=== PATIENT | male | born 2000 | race Two or more races ===

== ENCOUNTER 2020-05-23 20:09 | Emergency (ER) | payer OTHER ==
--- NOTE | 2020-05-23 20:13 | PDOC ---
Rapid Medical Evaluation Chief Complaint: Injury Time Seen by Provider: 05/23/20 20:10 Medical Evaluation: Allergies Allergy/AdvReac Type Severity Reaction Status Date / Time No Known Allergies Allergy Verified 02/11/20 14:39 05/23/20 20:11 20 year old male c/o right hand pain a week ago. patient sent by PCP for an xray Last Vital Signs Temp Pulse Resp BP Pulse Ox 98.3 F 60 20 113/61 100 05/23/20 20:10 05/23/20 20:10 05/23/20 20:10 05/23/20 20:10 05/23/20 20:10 Pe: patient is able to make a fist. no swelling or deformity A; right hand pain P; right hand xray 05/23/20 20:30 Discharge Disposition - Diagnosis Right hand pain - Referrals - Patient Instructions - Post Discharge Activity
[2020-05-23 20:14] VITALS: BP 113/61; PULSE 60; TEMP 98.3; BMI 19.6
--- NOTE | 2020-05-23 20:37 | PDOC ---
History of Present Illness - General Chief Complaint: Pain Stated Complaint: RT HAND PAIN Time Seen by Provider: 05/23/20 20:10 - History of Present Illness Initial Comments: 05/23/20 20:35 20-year-old male without comorbidities presents for evaluation of right hand pain x1 week after playing basketball no specific trauma Past History - Medical History Allergies/Adverse Reactions: Allergies Allergy/AdvReac Type Severity Reaction Status Date / Time No Known Allergies Allergy Verified 02/11/20 14:39 COPD: No - Psycho-Social/Smoking History Smoking History: Never smoked - Substance Abuse Hx (Audit-C & DAST Scrn) How often the patient has a drink containing alcohol: Never Score: In Men: 4 or > Positive; In Women: 3 or > Positive: 0 Screen Result (Pos requires Nsg. Audit-10AR): Negative Review of Systems - Review of Systems Musculoskeletal: Yes: See HPI *Physical Exam - Vital Signs Last Vital Signs Temp Pulse Resp BP Pulse Ox 98.3 F 60 20 113/61 100 05/23/20 20:10 05/23/20 20:10 05/23/20 20:10 05/23/20 20:10 05/23/20 20:10 - Physical Exam 05/23/20 20:36 Right hand skin color and temperature normal full range of motion all fingers MCP J's FDS and FDP work independently in all fingers no gross sensorimotor deficits minimal tenderness at the area of the fifth metacarpal otherwise neurovascular intact without any other areas of tenderness. Full range of motion of the forearm wrist and elbow Medical Decision Making - Medical Decision Making 05/23/20 20:36 X-rays of the right hand show no evidence of fracture trauma or destructive process benign examination follow-up with hand surgery should he have other problems. I have reviewed the pathophysiology with the patient. They are in agreement with the treatment plan all questions were answered to their satisfaction. Understanding for follow-up without fail was also conveyed to the patient. Again they are in agreement. Discharge - Discharge Information Problems reviewed: Yes Clinical Impression/Diagnosis: Right hand pain Condition: Stable Disposition: HOME - Admission No - Follow up/Referral Referrals: Marlen Jose MD [Primary Care Provider] - Adam Phillips DO [Staff Physician] - - Patient Discharge Instructions Additional Instructions: Tylenol Motrin for pain and follow-up with orthopedic surgery in 1 to 2 days for further evaluation and treatment options. Return to the emergency room should you have further issues. - Post Discharge Activity
== END 2020-05-23 20:39 | disposition home or self-care (01) ==
LOC: JERFT 20:09 → JER 20:09 → JERFT 20:39
DX: M79.641 Pain in right hand (principal)
CPT/HCPCS: 73130-TC-RT-FY; 99283-25

== ENCOUNTER 2020-08-01 21:21 | Emergency (ER) | payer OTHER ==
[2020-08-01 21:27] VITALS: BP 129/62; PULSE 58; TEMP 97.8; BMI 19.9
--- NOTE | 2020-08-01 21:31 | PDOC ---
Rapid Medical Evaluation Chief Complaint: Pain Medical Evaluation: Allergies Allergy/AdvReac Type Severity Reaction Status Date / Time No Known Allergies Allergy Verified 02/11/20 14:39 Vital Signs Temp Pulse Resp BP Pulse Ox 97.8 F 58 L 20 129/62 100 08/01/20 21:22 08/01/20 21:22 08/01/20 21:22 08/01/20 21:22 08/01/20 21:22 08/01/20 21:30 20 year old male with testicular pain radiating to lower abdomen, intermittent. PE differed Plan Scrotal US Pt to precede to Ed for further eval
--- OUTSIDE RECORDS SUMMARY | 2020-08-01 21:35 | XMS ---
:2000 Author Organization [facility] Support Name Relationship Address Phone CATHIE Unavailable Unavailable Unavailable CATHIE Unavailable Unavailable Unavailable AYALA FATHER [address] [place] [address] AYALA Parent [address] Unavailable [place] [address] AYALA Unavailable [address] [place] [address] Re-disclosure Warning The records that you are about to access may contain information from federally- assisted alcohol or drug abuse programs. If such information is present, then the following federally mandated warning applies: This information has been disclosed to you from records protected by federal confidentiality rules (42 CFR part 2). The federal rules prohibit you from making any further disclosure of this information unless further disclosure is expressly permitted by the written consent of the person to whom it pertains or as otherwise permitted by 42 CFR part 2. A general authorization for the release of medical or other information is NOT sufficient for this purpose. The Federal rules restrict any use of the information to criminally investigate or prosecute any alcohol or drug abuse patient.The records that you are about to access may contain highly sensitive health information, the redisclosure of which is protected by Article 27-F of the [facility] Public Health law. If you continue you may haveaccess to information: Regarding HIV / AIDS; Provided by facilities licensed or operated by the [facility] Office of Mental Health; or Provided by the [facility] Office for People With Developmental Disabilities. If such information is present, then the following [facility] mandated warning applies: This information has been disclosed to you from confidential records which are protected by state law. State law prohibits you from making any further disclosure of this information without the specific written consent of the person to whom it pertains, or as otherwise permitted by law. Any unauthorized further disclosure in violation of state law may result in a fine or long term sentence or both. A general authorization for the release of medical or other information is NOT sufficient authorization for further disclosure. Encounters Encounter Providers Location Date Indications Data Source(s ) Outpatient [address] 05/16/2020 eCW1 ([facility] 12:[facility]:00 AM [facility] Outpatient [address] 03/28/2020 eCW1 ([facility] 12[facility]00 [facility] [address] 03/01/2020 eCW1 [facility] [address] 02/17/2020 eCW1 [facility] [address] 10/21/2019 eCW1 [facility] [address] 10/05/2019 eCW1 [facility]00 [facility] Immunizations Vaccine Date Status Description Data Source(s) B12 05/16/2020 02:21:00 PM completed eCW1 ([facility]) B12 03/28/2020 02:52:00 PM completed eCW1 ([facility]) B12 03/01/2020 12:33:00 PM completed eCW1 ([facility]) B12 03/01/2020 12:33:00 PM completed eCW1 ([facility]) B12 02/17/2020 12:09:00 PM completed eCW1 ([facility]) B12 02/17/2020 12:09:00 PM completed eCW1 ([facility]) B12 10/21/2019 10:23:00 AM completed eCW1 ([facility]) B12 10/21/2019 10:23:00 AM completed eCW1 ([facility]) Medications Medication Brand Start Product Dose Route Administrative Pharmacy [facility] Indications Reaction Description Data Name Date Form Instructions Instructions Source(s) Vitamin B Vitami 01/02/ active 1 tablet eCW1 12 0.1 MG n B-12 2020 ([facility] Tablet 100 12:00: Cm s Vitamin MCG 00 AM Medical B-12 100 EST Practice [facility]) Vitamin D UNK 10/21/ active 1 capsule e CW1 (Ergocalcif 2020 ([facility]) 12:00: Cm s UNIT 00 AM Medical EST Practice PC) Vitamin D UNK 10/21/ 1.0 active Vitamin D e CW1 (Ergocalcif 2020 {caps (Ergocalcife ([facility]) 12:00: ule} rol) [id number] Jo[facility] UNIT 00 AM UNIT Medical EST Practice PC) Vitamin D UNK 10/21/ 1.0 active Vitamin D e CW1 (Ergocalcif 2020 {caps (Ergocalcife ([facility]) 12:00: ule} rol) [id number] [facility] UNIT 00 AM UNIT Medical EST Practice PC) Vitamin B Vitami 10/21/ active 1 tablet eCW1 12 0.1 MG n B-12 2019 ([facility] Tablet 100 12:00: Mc s Vitamin MCG 00 AM Medical B-12 100 EST Practice [facility]) Vitamin B Vitami 10/21/ 1.0 active Vitamin B -12 eCW1 12 0.1 MG n B-12 2020 {tabl 100 MCG (Rishabh nt Oral Tablet 100 12:00: et} Cm s Vitamin MCG 00 AM Medical B-12 100 EST Practice [facility]) Vitamin B Vitami 10/21/ active 1 tablet eCW1 12 0.1 MG n B-12 2020 ([facility] Tablet 100 12:00: Cm s Vitamin MCG 00 AM Medical B-12 100 EST Practice [facility]) Vitamin B Vitami 10/21/ 1.0 active Vitamin B -12 eCW1 12 0.1 MG n B-12 2020 {tabl 100 MCG (Rishabh nt Oral Tablet 100 12:00: et} Cm s Vitamin MCG 00 AM Medical B-12 100 EST Practice [facility]) Vitamin D UNK 10/21/ active 1 capsule e CW1 (Ergocalcif 2020 ([facility]) 12:00: Cm s UNIT 00 AM Medical EST Practice PC) Vitamin D UNK 10/21/ active 1 capsule e CW1 (Ergocalcif 2020 ([facility]) 12:00: Cm s UNIT 00 AM Medical EST Practice PC) Betamethaso Clotri 1.0 active Clotrim azole eCW1 ne 0.5 2018 {appl -Betamethaso ([facility]int MG/ML / -Betam 12:00: icati ne 1-0.05 % [facility] Clotrimazol ethaso 00 AM on_to Medi lou e 10 MG/ML ne EST _affe Practice Topical 1-0.05 cted_ PC) Lotion % area} Clotrimazol e-Betametha sone 1-0.05 % Betamethaso Clotri 10/05/ active 1 eC W1 ne 0.5 ole 2018 application (Rishabh nt MG/ML / -Betam 12:00: to affected J osephs Clotrimazol ethaso 00 AM area Medic al e 10 MG/ML ne EST Practice Topical 1-0.05 PC) Lotion % Clotrimazol e-Betametha sone 1-0.05 % Betamethaso Clotri 10/05/ active 1 eC W1 ne 0.5 ole 2018 application (Rishabh nt MG/ML / -Betam 12:00: to affected J osephs Clotrimazol ethaso 00 AM area Medic al e 10 MG/ML ne EST Practice Topical 1-0.05 PC) Lotion % Clotrimazol e-Betametha sone 1-0.05 % Betamethaso Clotri 10/05/ 1.0 active Clotrim azole eCW1 ne 0.5 2018 {appl -Betamethaso (S aint MG/ML / -Betam 12:00: icati ne 1-0.05 % Joi Clotrimazol ethaso 00 AM on_to Medi lou e 10 MG/ML ne EST _affe Practice Topical 1-0.05 cted_ PC) Lotion % area} Clotrimazol e-Betametha sone 1-0.05 % Betamethaso Clotri 10/05/ active 1 eC W1 ne 0.5 mazole 2018 application (Rishabh nt MG/ML / -Betam 12:00: to affected J osephs Clotrimazol ethaso 00 AM area Medic al e 10 MG/ML ne EST Practice Topical 1-0.05 PC) Lotion % Clotrimazol e-Betametha sone 1-0.05 % Betamethaso Clotri active 1 eC W1 ne 0.5 mazole 2018 application (Rishabh nt MG/ML / -Betam 12:00: to affected J osephs Clotrimazol ethaso 00 AM area Medic al e 10 MG/ML ne EST Practice Topical 1-0.05 PC) Lotion % Clotrimazol e-Betametha sone 1-0.05 % Insurance Providers Payer name Policy type Policy ID Covered Covered alliance party's Policy P stephie / Coverage alliance party ID relationship to [employer] ormation type navarro NIA [id number] 200 HEALTH NON CAP Problems, Conditions, and Diagnoses Code Display Name Description Problem Type Effective Dates Data Source(s) E55.9 [id number] Vitamin D Problem 10/21/2019 eCW1 ([facility] 12:[facility]:00 AM [facility] E55.9 [id number] Vitamin D Problem 10/21/2019 eCW1 ([facility] deficiency 12:00:00 AM [facility]) Surgeries/Procedures Procedure Description Date Indications Data Source(s) Injection, vitamin b-12 03/01/2020 eCW1 ([facility] cyanocobalamin, up to 12:00:00 AM EDT Ne dical [facility]) 1000 mcg THERAPEUTIC 03/01/2020 eCW1 ([facility] ephs PROPHYLACTIC/DX 12:00:00 AM EDT Medical P eliecer ) INJECTION SUBQ/IM COLLECTION VENOUS BLOOD 10/05/2019 eCW1 ([facility] VENIPUNCTURE 12:00:00 AM [facility] Medical Prac ally ) HANDLG&/OR CONVEY OF 10/05/2019 eCW1 ([facility] SPEC FOR TR OFFICE TO 12:00:00 AM EST Med ical Practice ) LAB Social History Code Duration Value Status Description Data Source(s ) Smoking 05/16/2020 12:00:00 Never Smoker completed Never Smoker e CW1 ([facility] ) Smoking 03/28/2020 12:00:00 Never Smoker completed Never Smoker e CW1 ([facility] PC) Vital Signs ID Date Data Source UNK Name Value Range Interpretation Code Description Data Source(s) Diastolic blood 69 mm[Hg] 69 mm[Hg] eCW1 ([facility] nt pressure [facility]) Systolic blood 114 mm[Hg] 114 mm[Hg] eCW1 ([facility]aine t [facility]) Body temperature 98.2 [degF] 98.2 [degF] eCW1 ( [facility]) Respiratory rate 18 /min 18 /min eCW1 ( [facility]) Heart rate 75 /min 75 /min eCW1 ([facility]) Body mass index 25.39 kg/m2 25.39 kg/m2 eCW1 (S aint (BMI) [Ratio] [facility]) Body weight 130 [lb_av] 130 [lb_av] eCW1 ([facility]) Body height [in_i] eCW1 ([facility]) Diastolic blood 72 mm[Hg] 72 mm[Hg] eCW1 ([facility]ishabh nt pressure [facility]) Systolic blood 107 mm[Hg] 107 mm[Hg] eCW1 ([facility] t pressure [facility]) Body temperature 98.3 [degF] 98.3 [degF] eCW1 ( [facility]) Respiratory rate 18 /min 18 /min eCW1 ( int [facility]) Heart rate 60 /min 60 /min eCW1 ([facility]) Body mass index 25.39 kg/m2 25.39 kg/m2 eCW1 (S aint (BMI) [Ratio] [facility]) Body weight 130 [lb_av] 130 [lb_av] eCW1 ([facility]) Body height [in_i] eCW1 ([facility]) Diastolic blood 80 mm[Hg] 80 mm[Hg] eCW1 ([facility]abh nt pressure [facility]) Systolic blood 120 mm[Hg] 120 mm[Hg] eCW1 (Romaine t pressure [facility]) Body temperature 98.2 [degF] 98.2 [degF] eCW1 ( [facility]) Respiratory rate 18 /min 18 /min [facility]CW1 [facility]) Body mass index 26.56 kg/m2 26.56 kg/m2 eCW1 (S aint (BMI) [Ratio] [facility]) Body weight 136 [lb_av] 136 [lb_av] [facility]CW[facility]) Body height [in_us] eCW1 ([facility]) Diastolic blood 89 mm[Hg] 89 mm[Hg] eCW1 (Rishabh nt pressure [facility]) Systolic blood 123 mm[Hg] 123 mm[Hg] eCW1 ([facility] pressure [facility]) Body temperature 97.6 [degF] 97.6 [degF] eCW1 ( [facility]) Respiratory rate 18 /min 18 /min eCW1 ([facility]) Heart rate 70 /min 70 /min eCW1 ([facility]) Body mass index 26.17 kg/m2 26.17 kg/m2 eCW1 (S aint (BMI) [Ratio] [facility]) Body weight 134 [lb_av] 134 [lb_av] eCW1 ([facility]) Body height [in_us] eCW1 ([facility]) Diastolic blood 83 mm[Hg] 83 mm[Hg] eCW1 (Rishabh nt pressure [facility]) Systolic blood 137 mm[Hg] 137 mm[Hg] eCW1 (Romaine t pressure [facility]) Body temperature 97.4 [degF] 97.4 [degF] eCW1 ( [facility]) Heart rate 58 /min 58 /min eCW1 ([facility]) Body mass index 25.78 kg/m2 25.78 kg/m2 eCW1 (S aint (BMI) [Ratio] [facility]) Body weight 132 [lb_av] 132 [lb_av] eCW1 ([facility]) Body height [in_us] eCW1 ([facility]) Diastolic blood 80 mm[Hg] 80 mm[Hg] eCW1 ([facility]ishabh nt pressure [facility]) Systolic blood 126 mm[Hg] 126 mm[Hg] eCW1 (Romaine t pressure [facility]) Deprecated Oxygen 98 % 98 % eCW1 (S aint saturation in [facility] Capillary blood by [facility]) Oximetry Body temperature 98.5 [degF] 98.5 [degF] eCW1 ( [facility]) Respiratory rate 18 /min 18 /min eCW1 ([facility]) Heart rate 73 /min 73 /min eCW1 ([facility]) Body mass index 25.78 kg/m2 25.78 kg/m2 eCW1 (S aint (BMI) [Ratio] [facility]) Body weight 132 [lb_av] 132 [lb_av] eCW1 ([facility]) Body height [in_us] eCW1 ([facility]) Patient Treatment Plan of Care Planned Activity Planned Date Details Description Data Source (s) Vitamin D 10/21/2019 12:00:00 eCW1 (Sa int [facility]i (Ergocalciferol) 29391 AM EST Medic al Practice PC) UNIT Vitamin B 12 0.1 MG Oral 10/21/2019 12:00:00 eCW1 ([facility] Tablet AM EST Medical Pract[facility]) Vitamin D 10/21/2019 12:00:00 eCW1 (Sa int Joi (Ergocalciferol) 37659 AM EST Medic al Practice PC) UNIT Betamethasone 0.5 MG/ML / 10/05/2019 12:00:00 eCW1 ([facility] Clotrimazole 10 MG/ML AM EST Medica l Practice PC) Topical Lotion
--- NOTE | 2020-08-01 21:54 | PDOC ---
History of Present Illness - General Chief Complaint: Pain Stated Complaint: Abdominal Pain Time Seen by Provider: 08/01/20 21:32 History Source: Patient - History of Present Illness Initial Comments: 08/01/20 23:21 20-year-old male complaining of testicular pain after ejaculation patient reports that he noticed a swelling to the midline area of the scrotum which shortly after went away. Patient reports pain to urination after ejaculation. Patient reports that he has been with the same partner unsure of STI. Denies drainage, frequent urination, flank pain, fever/ chills. 08/01/20 23:22 Past History - Medical History Allergies/Adverse Reactions: Allergies Allergy/AdvReac Type Severity Reaction Status Date / Time No Known Allergies Allergy Verified 02/11/20 14:39 COPD: No - Psycho-Social/Smoking History Smoking History: Never smoked - Substance Abuse Hx (Audit-C & DAST Scrn) How often the patient has a drink containing alcohol: Never Score: In Men: 4 or > Positive; In Women: 3 or > Positive: 0 Screen Result (Pos requires Nsg. Audit-10AR): Negative Review of Systems - Review of Systems Able to Perform ROS?: Yes Is the patient limited Divehi proficient: No : Yes: Dysuria, Testicular Pain. No: Symptoms Reported, See HPI, Burning, Di scharge, Frequency, Flank Pain, Hematuria, Incontinence, Pain, Urgency, Testicular Mass, Testicular Swelling, Lesions, Other *Physical Exam - Vital Signs Last Vital Signs Temp Pulse Resp BP Pulse Ox 97.8 F 58 L 20 129/62 100 08/01/20 21:22 08/01/20 21:22 08/01/20 21:22 08/01/20 21:22 08/01/20 21:22 - Physical Exam General Appearance: Yes: Appropriately Dressed Gastrointestinal/Abdominal: positive: Normal Bowel Sounds, Soft. negative: Tender Male Genitalia: positive: normal genitalia. negative: testicular tenderness, testicular mass, epididymus tender, inguinal hernia Musculoskeletal: positive: Normal Inspection. negative: CVA Tenderness Integumentary: positive: Normal Color, Dry, Warm Neurologic: positive: Fully Oriented, Alert, Normal Mood/Affect ED Progress Note - Progress Note Progress Note: 08/02/20 05:42 A: scrotal pain P: US UA Urine culture Discharge - Discharge Information Problems reviewed: Yes Clinical Impression/Diagnosis: Testicular discomfort, Testicular/scrotal pain Condition: Stable Disposition: HOME - Follow up/Referral Referrals: Marlen Jose MD [Primary Care Provider] - Call tomorrow - Patient Discharge Instructions Patient Printed Discharge Instructions: DI for Testicular Pain Additional Instructions: Follow-up with your urologist. Return to the emergency room for any worsening symptoms. - Post Discharge Activity
[2020-08-01 22:58] LABS: PH,URINE 6.5 (5.0-8.0); URINE APPEARANCE CLEAR; URINE BILIRUBIN NEGATIVE (NEGATIVE); URINE COLOR YELLOW; URINE GLUCOSE (UA) NEGATIVE (NEGATIVE); URINE KETONE NEGATIVE (NEGATIVE); URINE LEUK ESTERASE NEGATIVE (NEGATIVE); URINE NITRITE NEGATIVE (NEGATIVE); URINE PROTEIN NEGATIVE (NEGATIVE)
== END 2020-08-01 23:37 | disposition home or self-care (01) ==
LOC: JER 21:21
DX: N50.819 Testicular pain, unspecified (principal)
CPT/HCPCS: 36415; 76870-TC; 81003; 87086; 87491; 87591; 99284-25

== ENCOUNTER 2021-06-01 20:08 | Emergency (ER) | payer OTHER ==
[2021-06-01 20:48] VITALS: BP 123/67; PULSE 68; TEMP 97
[2021-06-01 22:44] LABS: URINE APPEARANCE CLEAR; URINE BILIRUBIN NEGATIVE (NEGATIVE); URINE COLOR YELLOW; URINE GLUCOSE (UA) NEGATIVE (NEGATIVE); URINE KETONE NEGATIVE (NEGATIVE); URINE LEUK ESTERASE NEGATIVE (NEGATIVE); URINE NITRITE NEGATIVE (NEGATIVE); URINE PROTEIN NEGATIVE (NEGATIVE)
[2021-06-01 22:50] LABS: BASO % 1.3 % (0-2.0); EOS % 1.1 % (0-4.5); HEMATOCRIT 38.6 % (35.4-49); HEMOGLOBIN 13.4 GM/dL (11.7-16.9); LYMPH % 29.6 % (8-40); MCH 30.7 pg (25.7-33.7); MCHC 34.6 g/dl (32.0-35.9); MEAN CELL VOLUME 88.8 fl (80-96); MEAN PLT VOLUME 7.7 fl (7.5-11.1); MONO % 8.9 % (3.8-10.2); NEUT % 59.1 % (42.8-82.8); PLATELET COUNT 230 10^3/uL (134-434); RBC 4.35 M/mm3 (4.00-5.60); RDW 13.2 % (11.9-15.9); WHITE BLOOD COUNT 5.8 K/mm3 (4.0-10.0)
[2021-06-01 23:19] LABS: CALCIUM 8.6 mg/dL (8.5-10.1)
[2021-06-01 23:20] LABS: ALBUMIN 4.2 g/dl (3.4-5.0)
[2021-06-01 23:23] LABS: CREATININE 0.9 mg/dL (0.55-1.3)
[2021-06-01 23:25] LABS: BILIRUBIN,TOTAL 0.6 mg/dL (0.2-1); TOT PROT 7.2 g/dl (6.4-8.2)
== END 2021-06-02 00:25 | disposition home or self-care (01) ==
LOC: JER 20:08
DX: N50.819 Testicular pain, unspecified (principal)
CPT/HCPCS: 36415; 76870-TC; 80053; 81003; 85025; 87086; 99284-25

== ENCOUNTER 2025-02-11 23:16 | Emergency (ER) | payer OTHER ==
[2025-02-11 23:34] VITALS: BP 121/68; PULSE 85; RESP 18; TEMP 99.1; BMI 22.5
[2025-02-11] MEDS ORDERED: IBUPROFEN 400 MG TABLET (FP) PO ONE (23:34)
[2025-02-11] MEDS: IBUPROFEN 400 MG TABLET (FP) PO ONE (23:40)
== END 2025-02-12 02:07 | disposition home or self-care (01) ==
LOC: FER 23:16
DX: S89.91XA Unspecified injury of right lower leg, initial encounter (principal); X50.1XXA Overexertion from prolonged static or awkward postures, initial encounter; Y92.310 Basketball court as the place of occurrence of the external cause; Y93.67 Activity, basketball
CPT/HCPCS: 99283-25